=== PATIENT | female | born 1945 | race Caucasian/White ===

== ENCOUNTER → 2017-04-13 | Outpatient (CLI) | payer MEDICARE ==
--- NOTE | 2017-04-13 14:29 | KCIC ---
MR of the left foot HISTORY: Right foot pain in the metatarsals for about 2 months. Possible stress fracture. TECHNIQUE: Routine multiplanar sequences are obtained through the right foot centered at the metatarsals. FINDINGS: Mild motion degradation. No bone lesion or acute fracture. No bone marrow edema. Irvo-sl-auyobxmh degenerative changes at the first metatarsophalangeal joint and hallux sesamoids. No significant joint effusion. No significant tendon sheath fluid or tendon rupture. Lisfranc ligament complex is intact as is tarsometatarsal alignment. IMPRESSION: 1. Primary osteoarthritis. 2. No evidence of acute marrow edema or stress fracture. Electronically signed by: Chepe Delgado MD (04/13/2017 2:25 PM) [id number]
== END | disposition home or self-care (01) ==
LOC: KCIC MRI 13:18
PROVIDERS: ATTEND Podiatrist Foot & Ankle Surgery
DX: S92.901A Unspecified fracture of right foot, initial encounter for closed fracture (principal); X58.XXXA Exposure to other specified factors, initial encounter; Y93.89 Activity, other specified; Y92.89 Other specified places as the place of occurrence of the external cause; Y99.8 Other external cause status; M19.071 Primary osteoarthritis, right ankle and foot
CPT/HCPCS: 73718